=== PATIENT | male | born 1960 | race Caucasian/White ===

== ENCOUNTER 2016-08-22 12:17 | Inpatient (IN) | payer OTHER ==
[2016-08-22 12:57] LABS: ABSOLUTE NEUTROPHIL COUNT 5.8 K/mm3 (1.8-7.7); BASO # 0.1 K/mm3 (0.0-0.2); BASO % 0.8 % (0.2-1.0); EOS # 0.3 (0.0-0.5); HEMATOCRIT 42.6 % (32.0-52.0); HEMOGLOBIN 13.4 gm/l (14.0-18.0); IMM NEUT # 0.1 K/mm3 (0-0.2); IMM NEUT% 0.6 % (0-1); LYMPH # 1.6 (1.0-4.8); LYMPH % 18.4 % (15-45); MEAN CELL VOLUME 91.2 fl (80.0-94.0); MEAN CORPUSCULAR HEMOGLOBIN 28.7 pg (27.0-31.0); MEAN CORPUSCULAR HGB CONC 31.5 g/dl (33.0-37.0); MEAN PLATELET VOLUME 9.7 fl (7.4-10.4); MONO # 0.7 (0.0-0.8); MONO % 8.5 % (4-12); NEUT % 68.7 % (43-75); PLATELET COUNT 419 K/mm3 (130-400); RED CELL DISTRIBUTION WIDTH 14.2 % (11.5-14.5)
[2016-08-22 13:11] LABS: ALB/GLOB RATIO 1.2 (>1.0); ALBUMIN 3.5 gm/dL (3.5-5.7); CALCIUM 8.2 mg/dL (8.6-10.3)
[2016-08-22 13:17] LABS: INR 1.09; PROTHROMBIN TIME 11.1 SECONDS (9.3-11.4)
[2016-08-22] MEDS ORDERED: LABETALOL HCL 5 MG/ML 20ML VIAL IV ONE ×2 (13:19→15:06)
--- NOTE | 2016-08-22 13:58 | RAD ---
CHEST-AP BEDSIDE COMPARISON: Chest 2 views, 07/30/2013 HISTORY: Shortness of breath FINDINGS: Views: Frontal chest. Lungs: Moderate alveolar pulmonary edema is present, likely cardiogenic. Heart and vessels: Cardiomegaly. Trachea and bronchi: Normal Mediastinum and bryan: Normal Costophrenic sulci: Normal Chest wall and bones: Normal Upper abdomen: Normal. IMPRESSION: Cardiomegaly and pulmonary edema.
[2016-08-22] MEDS ORDERED: FUROSEMIDE 40 MG/4 ML VIAL ONE (14:13)
[2016-08-22] MEDS ORDERED: ASPIRIN CHEWTAB 81 MG TABLET ONE (15:18)
[2016-08-22] MEDS ORDERED: Heparin Sodium 5000 unit/0.5ml syringe ONE (15:18)
[2016-08-22] MEDS ORDERED: HEPARIN SODIUM PREMIX 500 ML IV ONE (15:18)
[2016-08-22] MEDS ORDERED: NITROGLYCERIN/D5W 25 MG/250 ML 250 ML IV ONE (15:18)
[2016-08-22] MEDS ORDERED: BISACODYL 10 MG SUP PR PRN (15:39)
[2016-08-22] MEDS ORDERED: BLISTEX LIPSTICK 1 EACH TP PRN (15:39)
[2016-08-22] MEDS ORDERED: BISACODYL 5 MG TABLET.EC PO PRN (15:39)
[2016-08-22] MEDS ORDERED: MAGNESIUM HYDROXIDE 30 ML UDCUP PO PRN (15:39)
[2016-08-22] MEDS ORDERED: MENTHOL/CETYLPYRD 1 EACH LOZENGE PO PRN (15:39)
[2016-08-22] MEDS ORDERED: ASPIRIN (UNCOATED) 325 MG TABLET PO ONE (15:43)
[2016-08-22 15:44] LABS: URINE BILIRUBIN NEGATIVE (NEGATIVE); URINE BLOOD NEGATIVE (NEGATIVE); URINE GLUCOSE (UA) NEGATIVE (NEGATIVE); URINE LEUKOCYTE ESTERASE NEGATIVE (NEGATIVE); URINE NITRITE NEGATIVE (NEGATIVE); URINE PROTEIN 1+ (NEGATIVE); URINE UROBILINOGEN NORMAL (0-1 mg/dl)
[2016-08-22 15:45] LABS: URINE APPEARANCE CLEAR; URINE COLOR YELLOW
[2016-08-22 16:02] LABS: AMPHETAMINES/METHAMPHETAMINES POSITIVE (NEGATIVE); COCAINE NEGATIVE (NEGATIVE); MARIJUANA NEGATIVE (NEGATIVE); METHADONE NEGATIVE (NEGATIVE); OPIATES NEGATIVE (NEGATIVE); TRICYCLIC ANTIDEPRESSANTS NEGATIVE (NEGATIVE)
[2016-08-22 16:05] LABS: URINE BACTERIA 0; URINE EPITHELIAL CELLS 0-2 /hpf; URINE RBC 0 /hpf; URINE WBC 0-2 /hpf
[2016-08-22] MEDS: NITROGLYCERIN/D5W 25 MG/250 ML 250 ML IV PRN (16:10)
[2016-08-22 16:17] VITALS: BMI 30.3
[2016-08-22] MEDS: ENOXAPARIN SODIUM 40 MG/0.4 ML SYRINGE SUB-Q SCH (16:50)
[2016-08-22] MEDS ORDERED: AMLODIPINE BESYLATE 5 MG TABLET PO ONE (17:09)
[2016-08-22] MEDS: LABETALOL HCL 5 MG/ML 20ML VIAL IV PRN (17:20)
[2016-08-22] MEDS ORDERED: SODIUM CHLORIDE 0.9% FLUSH 10 ML ONE (17:52)
[2016-08-22] MEDS ORDERED: IV START KIT ONE (17:52)
--- NOTE | 2016-08-22 20:29 | HP ---
BENY MERCADO [id number] CHIEF COMPLAINT: Shortness of breath. HISTORY OF PRESENT ILLNESS: The patient is a 56-year-old male with a past medical history significant for nonischemic methamphetamine-induced cardiomyopathy who presented with a two week history of progressive lower extremity swelling and abdominal distention, paroxysmal nocturnal dyspnea and worsening shortness of breath. Workup in the emergency department showed severe hypertension and acute congestive heart failure. He was referred to the Hospitalist Service and admitted to the intensive care unit on a nitroglycerin drip and PRN labetalol for antihypertensive control. He was given a dose of Lasix 40 mg IV in the emergency department. REVIEW OF SYSTEMS: Negative for any recent upper respiratory symptoms. He denies any nasal congestion, sore throat, fevers or chills. He has had dyspnea on exertion, orthopnea, some abdominal distention and some increased lower extremity edema. He denies any palpitations. He has had no nausea or vomiting. He has had some abdominal distention. He denies any diarrhea or constipation. He has had no arthralgias. No headaches, fainting, blackouts or seizures. No falls and no syncopal episodes. No urinary complaints. His review of systems is otherwise negative. PAST MEDICAL HISTORY: Significant for: 1. Hospitalization in July of 2013 for congestive heart failure. He was evaluated and treated at [facility]. 2. He had a cardiac catheterization showing no significant coronary artery disease. He had evidence of ventricular tachycardia and was treated with amiodarone. He has been poorly compliant with follow-up and has not been taking any of his medications or seen his doctor in over a year. 3. He has had some dyslipidemia documented in his record, but has not been on statin therapy in the past. 4. He does have a history of methamphetamine abuse in the past, but denies it currently. PAST SURGICAL HISTORY: He had a cardiac catheterization in July of 2013, showing clear coronaries, but an ejection fraction of 20%. ALLERGIES: No known drug allergies. HOME MEDICATIONS: None. FAMILY HISTORY: Significant for a father and a brother with hypertension. SOCIAL HISTORY: He lives in a trailer on a friend's property. He is . He is a former methamphetamine addict, but denies use currently, although his drug screen was positive. He is a former alcohol abuser, but reports he has cut-down and only drinks three to four beer two to three times a week currently. He has no children. He previously was in the practice of [facility], but is not willing to follow-up with him and would like a new doctor. PHYSICAL EXAMINATION: VITAL SIGNS: Weight is 101.4 kilograms. Body mass index is 30.3. Temperature is 97.5. Pulse 90. Blood pressure is 181/104. Respirations are 21. Oxygen saturations are 100% on two liters and were 98% on room air. GENERAL: This is an obese male in no acute distress. HEENT: Shows poor dentition. No oral lesions. NECK: Supple, without lymphadenopathy or thyromegaly. LUNGS: Show bibasilar crackles. CARDIOVASCULAR: Reveals a regular rate and rhythm, without a murmur. ABDOMEN: Slightly distended, with some hepatojugular reflux present. No organomegaly is present. Positive bowel sounds are noted. GENITOURINARY: Exam is deferred. RECTAL: Exam is deferred. EXTREMITIES: Show 1+ pitting edema to the knees. NEUROLOGIC: Exam is nonfocal. LABS: CBC shows a white count of 8.4, hemoglobin of 13.4 and a platelet count of 419,000. INR is 1.09. Lactate is 1.5. Chemistry profile shows a sodium of 139, potassium 2.9, carbon dioxide of 19, BUN of 22 and creatinine 1.4. Glucose is 159. Total bilirubin 0.7. AST is 59 and ALT is 63. CK-MB is elevated at 19.9. Total CPK is unknown. Troponin-I is elevated at 0.14. B-type natriuretic peptide is over 1,250. Creatinine is elevated at 1.4. Baseline creatinine was down to 1.2 in July of 2013. Urinalysis showed 1+ protein, otherwise unremarkable. Urine drug screen is positive for amphetamines/methamphetamines. Ethanol alcohol level is zero. EKG: A 12-lead EKG shows a sinus rhythm, possible left atrial enlargement and possible right ventricular conduction delay. No acute ST or T-wave changes, except for some lateral T-wave inversion. ASSESSMENT: 1. The patient is having hypertensive urgency associated with acute systolic congestive heart failure as manifested by x-ray evidence of pulmonary edema and cardiomegaly. 2. He has evidence of chronic kidney disease Stage-3, probably due to untreated hypertension. 3. He has a history of dyslipidemia. 4. He has ongoing refractory methamphetamine abuse. 5. He has a history of alcoholism, which is ongoing as well. PLAN: He is admitted to the ICU and will be on a nitroglycerin drip. I am going to start him on oral Norvasc. He was given Lasix. Will continue Lasix. He also will be given PRN labetalol for reducing his diastolic blood pressure below 110 if possible. Monitor his renal function and his rhythm on a media monitor. He will be watched closely. Will monitor his urine output and his daily weights. I will see about getting child protective services social worker to assist in helping him to abstain from methamphetamine abuse. Will work on finding him a new primary care provider. Will monitor him for signs or symptoms of alcohol withdrawal. Further treatment and recommendations will depend on his hospital course. VTE risk is considered moderate and Lovenox has been prescribed.
[2016-08-22] MEDS: DOCUSATE SODIUM 100 MG CAPSULE PO SCH (21:39)
[2016-08-23] MEDS: NITROGLYCERIN/D5W 25 MG/250 ML 250 ML IV PRN (00:19)
[2016-08-23] MEDS: SODIUM CHLORIDE 0.9% 100 ML IV PRN ×2 (03:40→09:27)
[2016-08-23] MEDS: ACETAMINOPHEN 325 MG TABLET PO PRN (05:12)
[2016-08-23 06:09] LABS: ABSOLUTE NEUTROPHIL COUNT 6.2 K/mm3 (1.8-7.7); BASO # 0.1 K/mm3 (0.0-0.2); BASO % 0.6 % (0.2-1.0); EOS # 0.2 (0.0-0.5); EOS % 2.5 % (0.9-2.9); HEMATOCRIT 35.3 % (32.0-52.0); HEMOGLOBIN 11.5 gm/l (14.0-18.0); IMM NEUT # 0.1 K/mm3 (0-0.2); IMM NEUT% 0.5 % (0-1); LYMPH # 1.9 (1.0-4.8); LYMPH % 19.8 % (15-45); MEAN CELL VOLUME 88.9 fl (80.0-94.0); MEAN CORPUSCULAR HGB CONC 32.6 g/dl (33.0-37.0); MEAN PLATELET VOLUME 9.4 fl (7.4-10.4); MONO % 10.8 % (4-12); NEUT % 65.8 % (43-75); PLATELET COUNT 364 K/mm3 (130-400); RED CELL DISTRIBUTION WIDTH 13.8 % (11.5-14.5)
[2016-08-23 06:29] LABS: CALCIUM 7.7 mg/dL (8.6-10.3)
[2016-08-23] MEDS ORDERED: FUROSEMIDE 40 MG/4 ML VIAL IV ONE (08:53)
[2016-08-23] MEDS ORDERED: FUROSEMIDE 20 MG/2 ML VIAL IV SCH (09:00)
[2016-08-23] MEDS: POTASSIUM CHLORIDE 20 MEQ TAB.PRT.SR PO SCH ×2 (09:27→21:23)
[2016-08-23] MEDS: AMLODIPINE BESYLATE 5 MG TABLET PO SCH (09:28)
[2016-08-23] MEDS: LISINOPRIL 20 MG TABLET PO SCH (09:28)
[2016-08-23] MEDS: ASPIRIN (ENTERIC COATED) 325 MG TABLET.EC PO SCH (09:28)
--- NOTE | 2016-08-23 09:54 | PDOC43 ---
- Subjective Chief Complaint: Shortness of breath Subjective: Reports Tolerating Diet Well, Reports Urinating Without Difficulty, Reports Shortness of Breath (improving), Denies Chest Pain, Denies Fever - Objective Vital Signs Temperature 98.0 F 08/23/16 03:00 Pulse Rate 93 08/23/16 06:00 Respiratory Rate 17 08/23/16 06:00 Blood Pressure 150/76 08/23/16 06:00 O2 Saturation by Pulse Oximetry 94 08/23/16 06:00 Oxygen Delivery Method Room Air Oxygen Flow Rate 0 Intake and Output 08/22/16 08/23/16 08/24/16 06:59 06:59 06:59 Intake Total 1340 Output Total 3875 Balance -2535 General: Alert, Oriented x3, Cooperative, No Acute Distress HEENT: Mucous membr. moist/pink Lungs: Diminished at Bases (with scattered wheezes) Cardiovascular: Regular Rate and Rhythm Abdomen: Soft, Normal Bowel Sounds, Non-Distended, No Tenderness Extremities: Edema (improving) Skin: Warm, Dry, Intact Laboratory 08/23/16 05:30 08/23/16 05:30 08/23/16 08/22/16 05:30 19:00 RBC 3.97 L MCHC 32.6 L Estimated GFR 57 L Calcium 7.7 L Troponin I 0.14 H Current Medications: Current meds reviewed in EMR. - Problems: Assessment/Plan (1) CHF (congestive heart failure) Qualifiers: Congestive heart failure type: combined Congestive heart failure chronicity: acute on chronic Qualifier Code: (I50.43) Acute on chronic combined systolic (congestive) and diastolic (congestive) heart failure Status: AcuteAssessment/Plan: associated with hypertensive urgency, improving with BP control and lasix, caused by ongoing methamphetamine abue and nonischemic cardiomyopathy-repeat ECHO, cont lasix (2) Hypertensive urgency Status: AcuteAssessment/Plan: noncompliant with medical follow up and treatment, treated with Labetolol and NTG drip overnight, started on Lasix and Norvasc-add RAMY-I and follow (3) Methamphetamine abuse Status: AcuteAssessment/Plan: initially denied use but present on grug screen, refractory addiction-SS consult VTE Prophylaxis: Lovenox Disposition: Home in 1-2 days Additional Comments: Downgrade to Med/Surg once off NTG
[2016-08-23] MEDS: DOCUSATE SODIUM 100 MG CAPSULE PO SCH ×2 (10:07→21:23)
[2016-08-23] MEDS: FUROSEMIDE 20 MG/2 ML VIAL IV SCH (16:49)
[2016-08-23] MEDS: ENOXAPARIN SODIUM 40 MG/0.4 ML SYRINGE SUB-Q SCH (16:49)
[2016-08-24] MEDS: ACETAMINOPHEN 325 MG TABLET PO PRN ×2 (00:46→07:47)
[2016-08-24] MEDS: LABETALOL HCL 5 MG/ML 20ML VIAL IV PRN ×2 (03:48→07:39)
[2016-08-24 06:08] LABS: ABSOLUTE NEUTROPHIL COUNT 5.5 K/mm3 (1.8-7.7); BASO # 0.1 K/mm3 (0.0-0.2); BASO % 0.7 % (0.2-1.0); EOS # 0.2 (0.0-0.5); EOS % 2.3 % (0.9-2.9); HEMATOCRIT 39.9 % (32.0-52.0); HEMOGLOBIN 13.2 gm/l (14.0-18.0); IMM NEUT% 0.4 % (0-1); LYMPH # 2.2 (1.0-4.8); LYMPH % 24.4 % (15-45); MEAN CELL VOLUME 88.5 fl (80.0-94.0); MEAN CORPUSCULAR HEMOGLOBIN 29.3 pg (27.0-31.0); MEAN CORPUSCULAR HGB CONC 33.1 g/dl (33.0-37.0); MEAN PLATELET VOLUME 9.5 fl (7.4-10.4); MONO # 1.1 (0.0-0.8); MONO % 11.7 % (4-12); NEUT % 60.5 % (43-75); PLATELET COUNT 404 K/mm3 (130-400); RED CELL DISTRIBUTION WIDTH 13.8 % (11.5-14.5)
[2016-08-24 07:03] LABS: I-STAT CREATININE 1.5 mg/dL (0.6-1.3)
[2016-08-24] MEDS: POTASSIUM CHLORIDE 20 MEQ TAB.PRT.SR PO SCH (08:31)
[2016-08-24] MEDS: DOCUSATE SODIUM 100 MG CAPSULE PO SCH (08:31)
[2016-08-24] MEDS: LISINOPRIL 20 MG TABLET PO SCH (08:32)
[2016-08-24] MEDS: FUROSEMIDE 20 MG/2 ML VIAL IV SCH (08:32)
[2016-08-24] MEDS: ASPIRIN (ENTERIC COATED) 325 MG TABLET.EC PO SCH (08:32)
[2016-08-24] MEDS: AMLODIPINE BESYLATE 5 MG TABLET PO SCH (08:32)
[2016-08-24 11:22] VITALS: BP 158/107
[2016-08-24] MEDS ORDERED: CARVEDILOL 6.25 MG TABLET PO SCH (12:00)
--- NOTE | 2016-08-24 16:32 | DS ---
BENY MERCADO [id number] DATE OF ADMISSION: 08/22/2016 DATE OF DISCHARGE: 08/24/2016 DISCHARGE DIAGNOSES: 1. Hypertensive urgency, with acute biventricular congestive heart failure. 2. Hypokalemia. OTHER DIAGNOSES: Include: 1. Shortness of breath. 2. Chronic Stage-3 kidney disease, believed to be due to hypertension. 3. Ongoing methamphetamine abuse. 4. Dyslipidemia. TO SUMMARIZE THE ADMISSION AND HOSPITAL COURSE: The patient is a 56-year-old male who presented to the [facility] Emergency Department with complaints of progressive shortness of breath, abdominal distention and lower extremity edema. In the emergency department he was found to have severe hypertension, with blood pressures over 181/104. Initially he was treated with labetalol. Subsequently he was placed on a nitroglycerin drip. He was hypokalemic on admission, with a potassium of 2.9. He had mildly elevated troponin levels, felt to be due to his hypertensive urgency. He was admitted to the ICU on a nitroglycerin drip, given labetalol as needed and started on Norvasc, Lisinopril and Coreg. He had an echocardiogram performed on 08/23/2016, showing an ejection fraction of 30%, with right ventricular systolic pressures elevated at 50-55 mmHg and mild concentric left ventricular hypertrophy. He had improvement in his blood pressures and his symptoms with Lasix and antihypertensive therapy as noted above. We did not pursue further evaluation of ischemic heart disease because he had a prior cardiac catheterization in July of 2013, showing clear coronaries. He did have a positive drug screen for methamphetamines and did receive some cessation counseling with [facility]. By 08/24/2016, he was felt to be medically stable for discharge. PHYSICAL EXAMINATION: VITAL SIGNS: At discharge his temperature was 97.8, pulse 86, blood pressure 158/107, respirations 18 and oxygen saturation was 99% on room air. Body mass index was 28.9 and weight was 96.6 kilograms. GENERAL: This is an obese male in no acute distress. HEENT: Unremarkable. LUNGS: Clear to auscultation bilaterally. CARDIOVASCULAR: Reveals a regular rate and rhythm, without a murmur. ABDOMEN: Obese, soft, nontender and nondistended, with positive bowel sounds. DISPOSITION: Home. DISCHARGE CONDITION: Good. LABORATORY STUDIES: On the day of discharge he had a glucose of 105, sodium 139, potassium 3.9 and creatinine 1.5. CBC showed a white count of 9.1, hemoglobin of 13.2 and a platelet count of 404,000. DISCHARGE MEDICATIONS: He is prescribed: 1. Potassium chloride 8 mEq daily. 2. Lasix 20 mg daily. 3. Lisinopril 20 mg daily. 4. Coreg 6.25 mg twice daily. 5. Enteric-coated aspirin 81 mg daily. 6. Amlodipine 5 mg daily. DISCHARGE FOLLOW-UP: A follow-up has been arranged with the [facility], to be arranged in the next week or two. DISCHARGE CONDITION: Good. He is advised to quit using amphetamines. cc: [facility]
[2016-08-25] MEDS ORDERED: FUROSEMIDE 20 MG TABLET PO SCH (09:00)
[2016-08-25] MEDS ORDERED: POTASSIUM CHLORIDE 8 MEQ TABLET.DR PO SCH (09:00)
== END 2016-08-24 14:00 | disposition home or self-care (01) | DRG 304 ==
LOC: ED 12:17 → ICU 15:23 → MS 08-23 18:14
PROVIDERS: ADMIT Family Medicine; ATTEND Family Medicine
DX: I16.0 Hypertensive urgency (principal); I50.21 Acute systolic (congestive) heart failure; F15.20 Other stimulant dependence, uncomplicated; J81.1 Chronic pulmonary edema; I11.0 Hypertensive heart disease with heart failure; I13.0 Hypertensive heart and chronic kidney disease with heart failure and stage 1 through stage 4 chronic kidney disease, or unspecified chronic kidney disease; N18.3 Chronic kidney disease, stage 3 (moderate); E78.5 Hyperlipidemia, unspecified; F10.21 Alcohol dependence, in remission; E87.6 Hypokalemia

== ENCOUNTER 2016-09-03 16:13 | Emergency (ER) | payer OTHER ==
[2016-09-03 17:37] LABS: ABSOLUTE NEUTROPHIL COUNT 7.9 K/mm3 (1.8-7.7); BASO # 0.1 K/mm3 (0.0-0.2); BASO % 1.1 % (0.2-1.0); EOS # 0.3 (0.0-0.5); EOS % 2.6 % (0.9-2.9); HEMATOCRIT 53.2 % (32.0-52.0); HEMOGLOBIN 17.2 gm/l (14.0-18.0); IMM NEUT # 0.2 K/mm3 (0-0.2); IMM NEUT% 1.4 % (0-1); LYMPH # 2.2 (1.0-4.8); LYMPH % 18.6 % (15-45); MEAN CELL VOLUME 88.8 fl (80.0-94.0); MEAN CORPUSCULAR HEMOGLOBIN 28.7 pg (27.0-31.0); MEAN CORPUSCULAR HGB CONC 32.3 g/dl (33.0-37.0); MEAN PLATELET VOLUME 9.6 fl (7.4-10.4); MONO # 1.1 (0.0-0.8); MONO % 9.3 % (4-12); PLATELET COUNT 454 K/mm3 (130-400); RED CELL DISTRIBUTION WIDTH 13.5 % (11.5-14.5)
[2016-09-03 18:00] LABS: URINE BILIRUBIN NEGATIVE (NEGATIVE); URINE BLOOD NEGATIVE (NEGATIVE); URINE GLUCOSE (UA) NEGATIVE (NEGATIVE); URINE LEUKOCYTE ESTERASE NEGATIVE (NEGATIVE); URINE NITRITE NEGATIVE (NEGATIVE); URINE PROTEIN TRACE (NEGATIVE); URINE UROBILINOGEN NORMAL (0-1 mg/dl)
[2016-09-03 18:04] LABS: URINE APPEARANCE CLEAR; URINE COLOR DARK YELLOW
[2016-09-03 18:12] LABS: AMPHETAMINES/METHAMPHETAMINES NEGATIVE (NEGATIVE); COCAINE NEGATIVE (NEGATIVE); MARIJUANA NEGATIVE (NEGATIVE); METHADONE NEGATIVE (NEGATIVE); OPIATES NEGATIVE (NEGATIVE); TRICYCLIC ANTIDEPRESSANTS NEGATIVE (NEGATIVE)
[2016-09-03 18:40] LABS: ALB/GLOB RATIO 1.1 (>1.0); ALBUMIN 3.9 gm/dL (3.5-5.7); CALCIUM 9.7 mg/dL (8.6-10.3)
== END 2016-09-03 20:19 | disposition home or self-care (01) ==
LOC: ED 16:13
DX: I95.1 Orthostatic hypotension (principal); I42.9 Cardiomyopathy, unspecified; I50.9 Heart failure, unspecified; I10 Essential (primary) hypertension